=== PATIENT | male | born 1945 | race Caucasian/White ===

== ENCOUNTER → 2017-10-13 | Outpatient (CLI) | payer OTHER | LOC: LABMALL 15:24 | DX: I47.2 Ventricular tachycardia (principal); J98.11 Atelectasis; R00.2 Palpitations ==

== ENCOUNTER → 2018-01-12 | Outpatient (CLI) | payer OTHER | LOC: NUC 07:32 | DX: I25.810 Atherosclerosis of coronary artery bypass graft(s) without angina pectoris (principal); E78.5 Hyperlipidemia, unspecified; I11.0 Hypertensive heart disease with heart failure; I50.9 Heart failure, unspecified; J44.9 Chronic obstructive pulmonary disease, unspecified; Z87.891 Personal history of nicotine dependence; Z88.2 Allergy status to sulfonamides; Z88.8 Allergy status to other drugs, medicaments and biological substances ==

== ENCOUNTER → 2018-12-07 | Outpatient (CLI) | payer OTHER ==
--- NOTE | 2018-12-07 12:57 | 2DMMODE ---
[facility] [place] [address] 2 D/M-MODE ECHOCARDIOGRAM Name: BALJINDERTRACYAvila REYNOSO Room #: REG [facility]#: [id number] ������������� Admission: 12/07/18 ������������� Attend Phys: Gurinder Claire MD Discharge: ��� ������������� ��� Date of : 47 Date of Service: 12/07/18 1257 �� Report #: [id number] �������� ��������������������������������������������[id number] THIS REPORT FOR: //name// APPROVED REPORT Study performed: 12/07/2018 11:11:27 EXAM: Comprehensive 2D, Doppler, and color-flow Echocardiogram Patient Location: Echo lab Room #: OP Status: routine BSA: 2.32 HR: 69 bpm BP: 130/60 mmHg Rhythm: NSR Other Information Study Quality: Adequate Risk Factors: Cardiac Risk Factors: Hyperlipidemia, HTN Indications CAD Tachycardia ICD/Pacemaker S/P CABG x7 2D Dimensions IVSd: 10.60 (7-11mm) LVOT Diam: 19.00 (18-24mm) LVDd: 56.97 mm PWd: 10.15 (7-11mm) Ascending Ao: 38.94 (22-36mm) Aortic Root: 37.37 mm LV Single Plane 4CH: 31.05 % LV Single Plane 2CH: 35.96 % Biplane EF: 34.4 % Volumes Left Atrial Volume (Systole) Single Plane 4CH: 37.87 mL Single Plane 2CH: 38.67 mL LA ESV Index: 17.00 mL/m2 Aortic Valve AoV Peak Cornel.: 1.42 m/s [facility] [place] [address] 2 D/M-MODE ECHOCARDIOGRAM Name: TRACY GALE Room #: REG [facility]#: [id number] ������������� Admission: 12/07/18 ������������� Attend Phys: Gurinder Claire MD Discharge: ��� ������������� ��� Date of : 47 Date of Service: 12/07/18 [facility] �� Report #: [id number] �������� ��������������������������������������������[id number] AO Peak Gr.: 8.08 mmHg LVOT Max P.33 mmHg LVOT Max V: 0.76 m/s TOMER Vmax: 1.60 cm2 Mitral Valve E/A Ratio: 0.5 MV Decel. Time: 242.60 ms MV E Max Cornel.: 0.31 m/s MV A Cornel.: 0.65 m/s MV PHT: 70.35 ms IVRT: 51.90 ms TDI E/Lateral E': 6.20 E/Medial E': 7.75 Medial E' Cornel.: 0.04 m/s Lateral E' Cornel.: 0.05 m/s Pulmonary Valve PV Peak Cornel.: 0.97 m/s PV Peak Gr.: 3.77 mmHg Pulmonary Vein P Vein S: 0.53 m/s P Vein A: 0.19 m/s P Vein D: 0.43 m/s P Vein A Dur.: 121.1 msec P Vein S/D Ratio: 1.23 Tricuspid Valve TR Peak Cornel.: 1.61 m/s RAP Estimate: 7.00 mmHg TR Peak Gr.: 10.32 mmHg PA Pressure: 17.00 mmHg Left Ventricle Left ventricle is dilated. Inferolateral hypokinesis. There is normal left ventricular wall thickness. Left ventricular systolic function is moderate to severely decreased. LVEF is 30-35%. Mild diastolic dysfunction is present (impaired relaxation pattern). Right Ventricle The right ventricle is normal size. The right ventricular systolic function is normal. Atria The left atrium size is normal. The right atrium size is normal. Aortic Valve The aortic valve is normal in structure. No aortic regurgitation is [address] [address] 2 D/M-MODE ECHOCARDIOGRAM Name: TRACY GALE Room #: REG [facility]#: [id number] ������������� Admission: 12/07/18 ������������� Attend Phys: Gurinder Claire MD Discharge: ��� ������������� ��� Date of : 47 Date of Service: 12/07/18 1257 �� Report #: [id number] �������� ��������������������������������������������[id number] present. There is no aortic valvular stenosis. Mitral Valve There is mitral annular calcification. Mild mitral regurgitation. No evidence of mitral valve stenosis. Tricuspid Valve The tricuspid valve is normal in structure. Mild tricuspid regurgitation. Pulmonic Valve The pulmonary valve is normal in structure. Trace pulmonic regurgitation. Great Vessels The aortic root is normal in size. IVC is normal in size and collapses >50% with inspiration. Pericardium There is no pericardial effusion. <Conclusion> Left ventricle is dilated. There is normal left ventricular wall thickness. Left ventricular systolic function is moderate to severely decreased. Mild diastolic dysfunction is present (impaired relaxation pattern). The right ventricle is normal size. The left atrium size is normal. The aortic valve is normal in structure. Mild mitral regurgitation. Mild tricuspid regurgitation. ��������������������������������������������� <ELECTRONICALLY SIGNED> ���������������������������������������� By: Gurinder Claire MD ��������������������������������������������� 12/07/18 1257 1257 1257 Gurinder Claire MD /INF
== END ==
LOC: CV 10:42
DX: I08.1 Rheumatic disorders of both mitral and tricuspid valves (principal); I47.2 Ventricular tachycardia; I25.10 Atherosclerotic heart disease of native coronary artery without angina pectoris; E78.5 Hyperlipidemia, unspecified; Z95.5 Presence of coronary angioplasty implant and graft

== ENCOUNTER → 2019-06-23 | Outpatient (CLI) | payer OTHER | LOC: RAD 12:58 | DX: J98.4 Other disorders of lung (principal); I48.91 Unspecified atrial fibrillation ==

== ENCOUNTER → 2020-06-20 | Outpatient (CLI) | payer OTHER | LOC: SJCVC 11:29 | PROVIDERS: ATTEND Internal Medicine Cardiovascular Disease | DX: I21.09 ST elevation (STEMI) myocardial infarction involving other coronary artery of anterior wall (principal); I25.5 Ischemic cardiomyopathy; I25.89 Other forms of chronic ischemic heart disease; I50.20 Unspecified systolic (congestive) heart failure; I44.7 Left bundle-branch block, unspecified; E78.5 Hyperlipidemia, unspecified; I11.0 Hypertensive heart disease with heart failure; Z95.1 Presence of aortocoronary bypass graft; Z45.02 Encounter for adjustment and management of automatic implantable cardiac defibrillator; Z95.810 Presence of automatic (implantable) cardiac defibrillator ==

== ENCOUNTER → 2020-07-10 | Outpatient (CLI) | payer OTHER ==
[~2020-07-10] MED LIST: AMIODARONE HCL400 MG PO; B-125000 MC1 PO; CARVEDILOL12.5 MG PO; ENTRESTO 49 MG1 EACH PO; MELATONIN10 M3 PO; NEURONTIN600 MG PO; PRAVACHOL40 MG PO; SPIRIVA RESPIMAT4 G1 INH; ST. JOSEPH ASPI81 M1 PO; THERA-M CAPLET1 EAC1 PO; VITAMIN C250 MG PO
== END ==
LOC: SJCVCIMAG 09:59
PROVIDERS: ATTEND Internal Medicine Cardiovascular Disease
DX: I08.2 Rheumatic disorders of both aortic and tricuspid valves (principal); I25.10 Atherosclerotic heart disease of native coronary artery without angina pectoris; I11.0 Hypertensive heart disease with heart failure; I50.22 Chronic systolic (congestive) heart failure; I47.2 Ventricular tachycardia; R06.00 Dyspnea, unspecified; I25.5 Ischemic cardiomyopathy; I44.7 Left bundle-branch block, unspecified; Z87.891 Personal history of nicotine dependence; Z95.810 Presence of automatic (implantable) cardiac defibrillator

== ENCOUNTER → 2020-07-10 | Outpatient (CLI) | payer OTHER | LOC: LAB 11:36 | PROVIDERS: ATTEND Internal Medicine Cardiovascular Disease | DX: Z01.812 Encounter for preprocedural laboratory examination (principal); Z20.828 Contact with and (suspected) exposure to other viral communicable diseases ==

== ENCOUNTER 2020-07-13 06:57 | Observation (INO) | payer OTHER ==
[2020-07-13] VITALS (11 sets, daily range): BP systolic 138–187; BP diastolic 76–97
[~2020-07-13] VITALS: Ht 185.4 cm; Wt 112.5 kg
[2020-07-13 07:42] LABS: ABSOLUTE NEUTROPHILS 4.2 thou/uL (1.4-8.2); BASOPHILS 1.1 % (0.0-2.0); EOSINOPHILS 3.5 % (0.0-3.0); HEMOGLOBIN 13.6 gm/dL (14.0-18.0); LYMPHOCYTES 20.1 % (24.0-44.0); MCH 31.7 pg (26.0-34.0); MCHC 33.3 g/dL (28.0-37.0); MCV 95.1 fL (80.0-100.0); MONOCYTES 9.3 % (1.0-8.0); PLATELET COUNT 131 thou/uL (150-400); RDW 14.5 % (10.5-14.5); WBC 6.4 thou/uL (4.0-11.0)
[2020-07-13] MEDS ORDERED: AMIODARONE HCL400 MG PO (07:54)
[2020-07-13] MEDS ORDERED: VITAMIN C250 MG PO (07:55)
[2020-07-13] MEDS ORDERED: ST. JOSEPH ASPI81 M1 PO (07:55)
[2020-07-13] MEDS ORDERED: CARVEDILOL12.5 MG PO (07:56)
[2020-07-13] MEDS ORDERED: B-125000 MC1 PO (07:57)
[2020-07-13] MEDS ORDERED: MELATONIN10 M3 PO (07:57)
[2020-07-13] MEDS ORDERED: PRAVACHOL40 MG PO (07:57)
[2020-07-13] MEDS ORDERED: NEURONTIN600 MG PO (07:58)
[2020-07-13] MEDS ORDERED: ENTRESTO 49 MG1 EACH PO (07:59)
[2020-07-13] MEDS ORDERED: THERA-M CAPLET1 EAC1 PO (07:59)
[2020-07-13] MEDS ORDERED: SPIRIVA RESPIMAT4 G1 INH (07:59)
[2020-07-13 08:12] LABS: CALCIUM 8.4 mg/dL (8.5-10.1); POTASSIUM 3.7 mmol/L (3.5-5.1)
[2020-07-13 08:18] LABS: ALBUMIN 3.9 g/dL (3.4-5.0); TOTAL BILIRUBIN 0.7 mg/dL (0.2-1.0)
--- NOTE | 2020-07-13 16:25 | NUR ---
TO UNIT FROM [employer] BY [employer] AT 1240, REPORT FROM DARRELL LEONARD. VSS WITH PERSISTENT HTN; DINNERTIME COREG GIVEN EARLY. PACED PER TELE. ORIENTED TO UNIT, FALL PRECAUTIONS. WILL CONTINUE TO FOLLOW CLOSELY.
[2020-07-14 00:50] VITALS: BP 141/77
--- NOTE | 2020-07-14 04:03 | NUR ---
PT ALERT AND ORIENTED. VITALS STABLE S/P ICD PLACEMENT. REPORTS MINIMAL SURENESS TO THE INCISION SITE, ALLEVIATED BY TYLENOL. DENIES CHEST PAIN, NAUSEA OR VOMITING. MAINTAINED BEDREST OVERNIGHT. ANTICIPATED TO DC THIS AM. WILL CONTINUE TO MONITOR AND FOLLOW POC.
[2020-07-14 05:19] VITALS: BP 153/82
--- NOTE | 2020-07-14 08:21 | NUR ---
ASSUMED CARE OF PT AT SHIFT CHANGE, A&0X4, TALKATIVE, C/O GENERALIZED ALL OVER AND SLIGHT L CHEST SITE PAIN, SBA, POSSIBLE D/C THIS A.M. SPOUSE WILL COME. SEE SEPARATE INTERVENTIONS FOR ASSESSMENTS. ENCOURAGED PT TO USE CALL LIGHT FOR ANY NEEDS
[2020-07-14 08:45] VITALS: BP 149/87
[2020-07-14 10:28] VITALS: BP 149/87
--- NOTE | 2020-07-21 15:54 | P ---
[facility] [place] [address] PROCEDURE REPORT Name: TRACY GALE Room #: 219-P [facility] Nery Avina#: [id number] Admission: 07/13/20 Attend Phys: Sonny Archibald MD Discharge: 07/14/20 Date of : 47 Report #: [id number] THIS REPORT FOR: cc: Kannan Maradiaga MD,Kannan Archibald,Sonny Santacruz MD ~ CC: Sonny Maradiaga DATE OF SERVICE: 07/13/2020 BI-V ICD UPGRADE PREOPERATIVE DIAGNOSES: 1. Ischemic cardiomyopathy. 2. Heart failure with reduced ejection fraction, [place] [employer] functional class 3. 3. Left bundle-branch block. 4. History of sustained ventricular tachycardia, status post ventricular tachycardia ablation. HISTORY: The patient is a 74-year-old with history of ischemic cardiomyopathy, sustained monomorphic VT, history of ICD implantation in [place]. He is currently at the elective replacement interval. He has a left bundle-branch block and [place] [employer] functional class 3 heart failure and therefore, he will undergo upgrade to a biventricular ICD. ANESTHESIA: The patient underwent MAC anesthesia with no anesthesia related complications. DESCRIPTION OF PROCEDURE: The patient underwent informed consent. We discussed the details of the procedure including the risks, which include but not limited to bleeding, infection, vascular damage, cardiac perforation and pneumothorax. He understood these risks and is willing to proceed. The patient was brought to EP laboratory in fasting and sedated state, prepped and draped in a sterile fashion, received IV antibiotics and underwent a venogram showing patency of the left axillary vein. Next, lidocaine was injected at the prior incision site. The incision was made, pocket was entered. Next, I obtained access to the left axillary vein x 1 and placed a short sheath and then placed a guide sheath into the right atrium. While I was attempting to obtain access to the coronary sinus with my wire, it caused some ventricular ectopy and this resulted in sustained monomorphic ventricular tachycardia at around 350 milliseconds. The patient underwent 200 joule synchronized cardioversion with nondenominational of sinus rhythm and there were no further episodes of VT for the remainder of the case. I then was able to get into the coronary sinus and performed a coronary sinus venogram. He had very limited targets along his coronary sinus, but did have a nice [facility] [address] [place] [address] PROCEDURE REPORT Name: TRACY GALE Room #: 219-P [facility] Nery Avina#: [id number] Admission: 07/13/20 Attend Phys: Sonny Archibald MD Discharge: 07/14/20 Date of : 47 Report #: [id number] anterolateral branch and I was able to get the quadripolar lead into this. There was good pacing and sensing thresholds. The sheath was split and the lead remained in place. The new lead was sutured to the prepectoral fascia and the preexisting leads and LV lead were connected to the new BiV ICD. Tug tests were performed. Device interrogated and found to be functioning normally. The pocket was irrigated with vancomycin and then it was closed in 2 layers using 2-0 for the deep layer, 3-0 for the middle layer and surgical glue was placed to outer skin layer. The patient awoke neurologically and hemodynamically intact. No complications and no significant bleeding. The explanted device was a Medtronic, model #X844JAR, serial #[id number]. The newly implanted device was a Medtronic MRI compatible, model #FXJN2E3, serial #[id number]. The leads were all manufactured by [employer]. The atrial lead was a 5076, serial #[id number], implanted in September 2006. The RV lead was a 6947, 65 cm, serial #[id number], implanted on 09/16/2006. The new LV lead was a Medtronic model #4998, 88 cm, serial #[id number]. The atrial lead demonstrated P-wave of 2 millivolts, pacing impedance of 556 ohms, pacing threshold within normal limits. The RV lead demonstrated R waves of 8.4 millivolts, pacing impedance 380 ohms and normal threshold and the LV lead demonstrated impedance of 826 ohms and a threshold of 0.4 volts at 0.5 milliseconds in the LV1-LV2 pacing configuration. His ICD therapies were programmed back to their nominal settings. CONCLUSIONS: 1. Successful upgrade to a biventricular ICD. 2. Successful generator exchange. 3. Satisfactory atrial, right ventricular and left ventricular pacing and sensing thresholds. <ELECTRONICALLY SIGNED> By: Sonny Archibald MD 07/21/20 1554 1023 1337 Sonny Archibald MD /nt
== END 2020-07-14 12:01 | disposition home or self-care (01) ==
LOC: CATH 06:57 → 2N 13:03 → CATH 13:43 → 2N 07-14 12:01
PROVIDERS: ADMIT Internal Medicine Cardiovascular Disease; ATTEND Internal Medicine Cardiovascular Disease
DX: I25.5 Ischemic cardiomyopathy (principal); I50.9 Heart failure, unspecified; I44.7 Left bundle-branch block, unspecified; I47.2 Ventricular tachycardia; I25.10 Atherosclerotic heart disease of native coronary artery without angina pectoris; Z79.899 Other long term (current) drug therapy
CPT/HCPCS: 62110; 62900; 70005

== ENCOUNTER → 2020-07-20 | Outpatient (CLI) | payer OTHER | LOC: SJCVC 14:48 | PROVIDERS: ATTEND Internal Medicine Cardiovascular Disease | DX: Z45.02 Encounter for adjustment and management of automatic implantable cardiac defibrillator (principal); R94.31 Abnormal electrocardiogram [ECG] [EKG]; I25.5 Ischemic cardiomyopathy; I11.0 Hypertensive heart disease with heart failure; I50.9 Heart failure, unspecified; Z95.1 Presence of aortocoronary bypass graft; Z95.810 Presence of automatic (implantable) cardiac defibrillator; Z79.899 Other long term (current) drug therapy; Z87.891 Personal history of nicotine dependence ==

== ENCOUNTER → 2020-08-15 | Outpatient (CLI) | payer OTHER | LOC: SJCVC 08:51 | PROVIDERS: ATTEND Internal Medicine Cardiovascular Disease | DX: I25.10 Atherosclerotic heart disease of native coronary artery without angina pectoris (principal); Z79.899 Other long term (current) drug therapy; Z87.891 Personal history of nicotine dependence ==

== ENCOUNTER → 2020-08-28 | Outpatient (CLI) | payer OTHER | LOC: SJCVCIMAG 08-09 08:46 | PROVIDERS: ATTEND Internal Medicine Cardiovascular Disease | DX: I49.3 Ventricular premature depolarization (principal); I25.5 Ischemic cardiomyopathy; E78.5 Hyperlipidemia, unspecified; I25.2 Old myocardial infarction; I25.810 Atherosclerosis of coronary artery bypass graft(s) without angina pectoris; E78.00 Pure hypercholesterolemia, unspecified; J44.9 Chronic obstructive pulmonary disease, unspecified; I11.0 Hypertensive heart disease with heart failure; I50.22 Chronic systolic (congestive) heart failure; Z87.891 Personal history of nicotine dependence; Z79.82 Long term (current) use of aspirin; Z79.899 Other long term (current) drug therapy; Z98.61 Coronary angioplasty status; Z95.1 Presence of aortocoronary bypass graft ==

== ENCOUNTER → 2020-12-19 | Outpatient (CLI) | payer OTHER | LOC: RAD 12:42 | PROVIDERS: ATTEND Internal Medicine Pulmonary Disease | DX: R06.00 Dyspnea, unspecified (principal); M47.814 Spondylosis without myelopathy or radiculopathy, thoracic region ==

== ENCOUNTER → 2021-02-26 | Outpatient (CLI) | payer OTHER | LOC: SJCVC 09:10 | PROVIDERS: ATTEND Internal Medicine Cardiovascular Disease | DX: R94.31 Abnormal electrocardiogram [ECG] [EKG] (principal); I45.4 Nonspecific intraventricular block; I25.5 Ischemic cardiomyopathy; I25.10 Atherosclerotic heart disease of native coronary artery without angina pectoris; I10 Essential (primary) hypertension; E78.00 Pure hypercholesterolemia, unspecified; F32.9 Major depressive disorder, single episode, unspecified; Z79.82 Long term (current) use of aspirin; Z79.899 Other long term (current) drug therapy; Z95.1 Presence of aortocoronary bypass graft; Z88.2 Allergy status to sulfonamides; Z88.1 Allergy status to other antibiotic agents; Z87.891 Personal history of nicotine dependence; Z72.89 Other problems related to lifestyle ==

== ENCOUNTER → 2021-03-27 | Outpatient (CLI) | payer OTHER | LOC: SJCVCIMAG 07:34 | PROVIDERS: ATTEND Internal Medicine Cardiovascular Disease | DX: R94.31 Abnormal electrocardiogram [ECG] [EKG] (principal); I08.2 Rheumatic disorders of both aortic and tricuspid valves; I45.4 Nonspecific intraventricular block; I25.5 Ischemic cardiomyopathy; I47.2 Ventricular tachycardia; I25.10 Atherosclerotic heart disease of native coronary artery without angina pectoris; J44.9 Chronic obstructive pulmonary disease, unspecified; I44.7 Left bundle-branch block, unspecified; Z95.810 Presence of automatic (implantable) cardiac defibrillator; Z95.1 Presence of aortocoronary bypass graft; Z88.2 Allergy status to sulfonamides; Z88.1 Allergy status to other antibiotic agents; Z79.82 Long term (current) use of aspirin; Z79.899 Other long term (current) drug therapy; Z87.891 Personal history of nicotine dependence; Z72.89 Other problems related to lifestyle ==

== ENCOUNTER → 2021-05-14 | Outpatient (CLI) | payer OTHER | LOC: SJCVC 09:08 | PROVIDERS: ATTEND Internal Medicine Cardiovascular Disease | DX: I11.0 Hypertensive heart disease with heart failure (principal); I50.22 Chronic systolic (congestive) heart failure; E78.00 Pure hypercholesterolemia, unspecified; J44.9 Chronic obstructive pulmonary disease, unspecified; I42.9 Cardiomyopathy, unspecified; I25.10 Atherosclerotic heart disease of native coronary artery without angina pectoris; Z95.810 Presence of automatic (implantable) cardiac defibrillator; Z79.82 Long term (current) use of aspirin; Z79.899 Other long term (current) drug therapy ==